=== PATIENT | male | born 1950 | race Caucasian/White ===

== ENCOUNTER 2020-12-13 22:42 | Emergency (ER) | payer OTHER ==
[2020-12-14 01:55] LABS: RED BLOOD COUNT 4.09 M/UL (4.20-5.50); WHITE BLOOD COUNT 4.7 K/UL (4.5-11.0)
== END 2020-12-14 00:10 | disposition home or self-care (01) ==
LOC: ER1 22:42
PROVIDERS: Internal Medicine
DX: U07.1 COVID-19 (principal); E11.9 Type 2 diabetes mellitus without complications; I11.9 Hypertensive heart disease without heart failure; Z95.1 Presence of aortocoronary bypass graft; Z90.49 Acquired absence of other specified parts of digestive tract
CPT/HCPCS: 36600; 71045; 80053; 82803; 85025; 93005; 99285